=== PATIENT | male | born 1975 | race Caucasian/White ===

== ENCOUNTER 2016-10-22 18:59 | Emergency (ER) | payer OTHER ==
[~2016-10-22] VITALS: Ht 170.2 cm; Wt 113.0 kg
[2016-10-22] MEDS ORDERED: TRAZ-132 PO (19:12)
[2016-10-23] MEDS ORDERED: IBUPROFEN 600MG TABLET PO STA (00:52)
[2016-10-23 01:15] LABS: BASOPHILS % 0.9 % (0.0-2.0); EOSINOPHILS % 2.5 % (0.0-5.0); HEMATOCRIT. 37.1 % (42.0-52.0); HEMOGLOBIN. 12.6 g/dL (14.0-18.0); LYMPHOCYTES % 23.2 % (20.0-50.0); MEAN CORPUSCULAR HEMOGLOBIN 29.6 pg (28.0-32.0); MEAN PLATELET VOLUME 11.3 fl (7.4-10.4); MONOCYTES % 5.5 % (2.0-8.0); NEUTROPHILS % 67.9 % (40.0-76.0); RED BLOOD CELL COUNT 4.26 mill/uL (4.7-6.1); RED CELL DISTRIBUTION WIDTH 14.6 % (11.6-14.6)
[2016-10-23 01:19] LABS: CHLORIDE 104 mEq/L (98-107)
[2016-10-23 01:33] LABS: CARBON DIOXIDE 27 mEq/L (21-32)
[2016-10-23 03:09] LABS: CLARITY URINE CLEAR (CLEAR); COLOR URINE YELLOW (YELLOW); GLUCOSE URINE NEGATIVE (NEGATIVE); KETONES URINE NEGATIVE (NEGATIVE); LEUKOCYTE ESTERASE URINE NEGATIVE (NEGATIVE); NITRITE URINE NEGATIVE (NEGATIVE); OCCULT BLOOD URINE NEGATIVE (NEGATIVE); PROTEIN URINE NEGATIVE (NEGATIVE); SPECIFIC GRAVITY URINE 1.005 (1.005-1.030)
[2016-10-23 04:33] VITALS: BP 128/78
[2016-10-26 19:10] LABS: PLATELET 48 x1000/uL (130-400)
== END 2016-10-23 04:34 | disposition home or self-care (01) ==
LOC: ER 18:59
DX: M54.5 Low back pain (principal); D69.6 Thrombocytopenia, unspecified; R11.2 Nausea with vomiting, unspecified; R19.7 Diarrhea, unspecified; Z98.890 Other specified postprocedural states
CPT/HCPCS: 36415; 80053; 81003; 83690; 85025; 99284